=== PATIENT | female | born 1950 | race Caucasian/White ===

== ENCOUNTER → 2017-02-26 | Outpatient (CLI) | payer MEDICARE, BC | LOC: KOH-I 10:18 | DX: M54.5 Low back pain (principal); M25.532 Pain in left wrist; M47.896 Other spondylosis, lumbar region; W19.XXXA Unspecified fall, initial encounter | CPT/HCPCS: 72110; 73110 ==

== ENCOUNTER → 2020-12-09 | Outpatient (CLI) | payer MEDICARE, BC ==
[2020-12-09 10:01] LABS: HEMOGLOBIN 15.4 gm/dl (12.3-15.3); RED BLOOD COUNT 4.52 M/UL (4.00-5.10)
[2020-12-09 10:23] LABS: BUN/CREATININE RATIO 33 (0-10)
== END ==
LOC: CT 09:00
PROVIDERS: Internal Medicine Hematology & Oncology
DX: C50.911 Malignant neoplasm of unspecified site of right female breast (principal); Z98.890 Other specified postprocedural states
CPT/HCPCS: 36415; 71260; 80053; 85027; Q9967

== ENCOUNTER → 2021-03-28 | Outpatient (CLI) | payer MEDICARE, BC | LOC: ECHO 09:44 | DX: R01.1 Cardiac murmur, unspecified (principal); I51.7 Cardiomegaly; I27.20 Pulmonary hypertension, unspecified | CPT/HCPCS: ECHO; 93306 ==

== ENCOUNTER → 2021-05-25 | Outpatient (CLI) | payer MEDICARE, BC | LOC: KOH-I 13:00 | DX: I70.203 Unspecified atherosclerosis of native arteries of extremities, bilateral legs (principal) | CPT/HCPCS: 93925 ==

== ENCOUNTER → 2021-06-13 | Outpatient (CLI) | payer MEDICARE, BC ==
[2021-06-13 09:36] LABS: RED BLOOD COUNT 4.7 M/UL (4.00-5.10); WHITE BLOOD COUNT 8.3 K/UL (4.5-11.0)
[2021-06-13 09:56] LABS: BUN/CREATININE RATIO 22 (0-10)
== END ==
LOC: CT 09:00
PROVIDERS: Internal Medicine Hematology & Oncology
DX: C50.911 Malignant neoplasm of unspecified site of right female breast (principal)
CPT/HCPCS: 36415; 71260; 80053; 85027; Q9967

== ENCOUNTER → 2021-11-07 | Outpatient (CLI) | payer MEDICARE, BC | LOC: KOH-I 12:08 | DX: I50.9 Heart failure, unspecified (principal) | CPT/HCPCS: 71045 ==

== ENCOUNTER → 2022-02-06 | Outpatient (CLI) | payer MEDICARE, BC | LOC: LAB 10:48 | DX: Z20.822 Contact with and (suspected) exposure to COVID-19 (principal) | CPT/HCPCS: U0003 ==